=== PATIENT | female | born 1940 | race Caucasian/White ===

== ENCOUNTER 2019-03-21 10:50 | Outpatient (POV) | END 2019-03-21 17:00 | LOC: OUTPT 10:50 | PROVIDERS: ATTEND Otolaryngology | DX: H91.90 Unspecified hearing loss, unspecified ear (principal) ==

== ENCOUNTER 2019-03-30 11:26 | Emergency (ER) | payer OTHER ==
[2019-03-30 11:35] VITALS: BP 151/83; TEMP 98.1; BMI 22.6
--- NOTE | 2019-03-30 12:25 | ED.PDOC ---
General ED Provider: Dr. JOHN PANDEY Chief Complaint: Fall Stated Complaint: 78 y old was witnessed to suddenly fall as she was walking,No apparent reason or recall of any sensation before and after fall.On Namenda and Fluoxetine.Toprol,lisinopril in average doses,Contusion of head and face-n eliecer bridge and forhead.No LOC reported, Time Seen by Physician: 11:35 Mode of Arrival: Walk-In Information Source: Patient Exam Limitations: No limitations Primary Care Provider: TORI PAGE Nursing and Triage Documentation Reviewed and Agree: Yes Does patient meet sepsis criteria?: No System Inflammatory Response Syndrome: Not Applicable Sepsis Protocol: For patient's 13 years and over: Temp is 96.8 and below OR 101 and greater Pulse >90 BPM Resp >20/minute Acutely Altered Mental Status Are patient's symptoms suggestive of a new infection, such as: -Pneumonia -Skin, Soft Tissue -Endocarditis -UTI -Bone, Joint Infection -Implantable Device -Acute Abdominal Infection -Wound Infection -Meningitis -Blood Stream Catheter Infection -Unknown - Neurological Deficit Complaint/Exam Patient Complains of: Reports: Other Symptom Onset Unknown: Yes Onset: Sudden Symptoms Are: Still present Timing: Constant Episodes Lasting: Hours Initial Severity: Moderate Current Severity: Mild Location: Reports: Facial Aggravating: Reports: None Alleviating: Reports: Rest, OTC Meds, Ice Associated Signs and Symptoms: Reports: Confusion CVA Risk Factors: Reports: Hypertension SDH Risk Factors: Reports: None Related Surgical History: Reports: None Carotid Bruit Present: No Meningeal Signs Positive: No Focal Weakness: Present: None Focal Sensory Loss: Present: None Gait: Normal Nystagmus Present: No Gag Reflex Present: No [id number]: Normal Findings Romberg Test Positive: No Heel to Toe Normal: No Signs of Trauma: No Differential Diagnoses: CVA, TIA, Head Trauma, Hypertension, Intracranial Bleed Quality Indicator For Non-Traumatic Chest Pain/Syncope: EKG Performed Review of Systems - Review Of Systems Constitutional: Reports: No symptoms Eyes: Reports: No symptoms Ears, Nose, Mouth, Throat: Reports: Nose pain, Epistaxis Respiratory: Reports: No symptoms Cardiac: Reports: No symptoms GI: Reports: No symptoms : Reports: No symptoms Musculoskeletal: Reports: No symptoms Skin: Reports: Bruising Neurological: Reports: No symptoms Endocrine: Reports: No symptoms Hematologic/Lymphatic: Reports: No symptoms All Other Systems: Reviewed and Negative Past Medical History - Past Medical History Previously Healthy: No Endocrine: Reports: None Cardiovascular: Reports: None Respiratory: Reports: None Hematological: Reports: None Gastrointestinal: Reports: None Genitourinary: Reports: None Neuro/Psych: Reports: None Musculoskeletal: Reports: None Cancer: Reports: None Last Menstrual Period: na - Surgical History General Surgical History: Reports: None - Family History Family History: Reports: None - Social History Smoking Status: Never smoker Hx Substance Use: No Alcohol Screening: None - Immunizations Tetanus Shot up to Date: No Physical Exam - Physical Exam Appearance: Well-appearing Ill-appearing: Mild Eyes: DIANE, EOMI, Conjunctiva clear ENT: Ears normal, Nose normal, Oropharynx normal Neck: Supple Respiratory: Airway patent, Breath sounds clear Cardiovascular: RRR, Pulses normal, No rub GI/: Soft, Nontender Musculoskeletal: Normal strength, ROM intact, No edema Skin: Warm, Dry, Normal color Neurological: Sensation intact, Motor intact, Reflexes intact, Alert, Oriented Psychiatric: Affect appropriate Course - Course Orders, Labs, Meds: Orders Category Date Time Status EKG-(ED ONLY) Stat CARDIO 03/30/19 12:42 Completed Wound [ED WOUND CARE] .ONCE EMERGENCY 03/30/19 13:[address] HEAD W/O CONTRAST Stat RADS 03/30/19 12:[address] MAXILLOFACIAL W/O CONTRAST Stat RADS 03/30/19 12:34 Completed Vital Signs: Temp Pulse Resp BP Pulse Ox 03/30/19 11:28 98.1 F 68 16 151/83 H 96 Departure - Departure Time of Disposition: 13:52 Disposition: HOME SELF-CARE Discharge Problem: Encounter for wound care Instructions: Facial Contusion (ED) Condition: Good Pt referred to PMD for follow-up: Yes IPMP verified?: No Allergies/Adverse Reactions: Allergies No Known Allergies Allergy (Unverified 03/21/19 11:07) Disposition Discussed With: Patient, Family
--- NOTE | 2019-03-30 13:17 | CT ---
EXAM: CT BRAIN HISTORY: Fall with head and facial contusions TECHNIQUE: CT brain without intravenous contrast. 5-mm axial sections with Reformations. COMPARISON: None FINDINGS: Brain is unremarkable without evidence of hemorrhage or large vessel distribution recent ischemic in farction. There is no suggestion of acute hydrocephalus or subdural fluid collection. No mass or ma ss effect. No skull fracture is seen. There are a few densities in the peripheral soft tissues at the upper and right aspect of the nasal bridge which could represent calcifications or soft tissue foreign bodies. Correlate clinically. IMPRESSION: 1. No acute intracranial process or injury. No skull fracture. 2. There are a few densities in the peripheral soft tissues at the upper and right aspect of the teresa al bridge which could represent calcifications or soft tissue foreign bodies. Correlate clinically.
--- NOTE | 2019-03-30 13:22 | CT ---
EXAM: CT facial bones without contrast HISTORY: Fall COMPARISON: None TECHNIQUE: CT facial bones performed without intravenous contrast. Coronal and sagittal reformatted images obtained. FINDINGS: Mastoid air cells clear. Temporal mandibular joints normally aligned. Mandible intact. Zygomatic maxillary complexes intact. Orbital rueda intact. No facial bone fracture. Nasal septum near midline. Paranasal sinuses clear. Atherosclerotic vascular calcification carotid arteries. IMPRESSION: No facial bone fracture
== END 2019-03-30 14:40 | disposition home or self-care (01) ==
LOC: ED 11:26
DX: S00.93XA Contusion of unspecified part of head, initial encounter (principal); R41.0 Disorientation, unspecified; J34.89 Other specified disorders of nose and nasal sinuses; R04.0 Epistaxis
CPT/HCPCS: 93005; 93010; 99283